=== PATIENT | female | born 1960 | race Caucasian/White ===

== ENCOUNTER 2023-03-26 13:59 | Inpatient (IN) ==
[2023-03-26] MEDS ORDERED: ASPIRIN CHEWABLE PO STA (14:25)
[2023-03-26 14:38] LABS: BASOPHILS # (AUTO) 0.1 K/uL (0-0.2); BASOPHILS % (AUTO) 0.9 % (0.0-3.0); EOSINOPHILS # (AUTO) 0.2 K/ul (0.0-0.7); EOSINOPHILS % (AUTO) 2.1 % (0.0-7.0); HEMATOCRIT 40.2 % (37.0-47.0); HEMOGLOBIN 13.4 g/dl (12.0-16.0); IMMATURE GRANULOCYTE % (AUTO) 0.4 % (0.0-5.0); LYMPHOCYTES # (AUTO) 1.5 K/uL (0.60-3.4); LYMPHOCYTES % (AUTO) 18.1 (10.0-50.0); MEAN CORPUSCULAR HEMOGLOBIN 33.3 pg (27.0-31.0); MEAN CORPUSCULAR HGB CONC 33.3 (31.8-35.4); MONOCYTES # (AUTO) 0.5 K/uL (0.4-2.0); MONOCYTES % (AUTO) 6.3 (0-10); NEUTROPHILS # (AUTO) 5.9 K/ul (2.0-6.9); NEUTROPHILS % (AUTO) 72.2 % (42.2-75.2); PLATELET COUNT 193 10^3/uL (140-440); RDW COEFFICIENT OF VARIATION 14.7 % (11.6-14.8); RED BLOOD COUNT 4.02 10^6/ul (4.20-5.40)
--- NOTE | 2023-03-26 14:45 | DI ---
EXAM: SINGLE VIEW CHEST. HISTORY: New onset A fib COMPARISON: None. FINDINGS: The cardiomediastinal silhouette appears enlarged. Pulmonary vascularity is within normal limits. Small left middle lung zone band-like opacities are seen. No evidence of pneumothorax or si zable pleural effusion is seen. Osseous structures are unremarkable. IMPRESSION: Left middle lung zone subsegmental atelectasis. Cardiomegaly.
[2023-03-26] MEDS ORDERED: ROCEPHIN 1 GM/50 ML D5W 1 GM/50 ML BAG IV ONE (14:47)
[2023-03-26 14:49] LABS: ALBUMIN 3.99 g/dL (3.5-5.0); ALKALINE PHOSPHATASE 97.9 U/L (53-141); ASPARTATE AMINO TRANSFERASE 35.7 U/L (14-36); BILIRUBIN,TOTAL 1.69 mg/dL (0.2-1.3); BLOOD UREA NITROGEN 24.6 mg/dL (7-17); CALCIUM 8.93 mg/dL (8.4-10.2); CARBON DIOXIDE 34.3 mmol/L (22-30.0); CHLORIDE 100.8 mmol/L (98-107); CREATINE KINASE 122.3 U/L (30-135); CREATININE 0.91 mg/dL (0.60-1.30); GLUCOSE 186.2 mg/dL (74-106); POTASSIUM 3.47 mmol/L (3.5-5.1); SODIUM 139.7 mmol/L (134.5-145); TOTAL PROTEIN 7.77 g/dL (6.3-8.2)
[2023-03-26 14:51] LABS: ABG O2 HGB 84.7 % (95-100); ABG PH 7.49 (7.35-7.45); BEecf 7.9 (-2.0-3.0); COHb 2.7 (0.5-1.5); HCO3 31.2 (21-28); MetHb 1.6 (0-1.5); TCO2 32.5 (19-24); sO2 88.8 % (94-98); tHb 13.5 g/dl (11.7-17.4)
[2023-03-26 15:01] LABS: TROPONIN I 0.049 ng/ml (0.0000-0.120)
--- NOTE | 2023-03-26 15:03 | ED.PDOC ---
General ED Provider: Dr. DAVIN CRANE DO Chief Complaint: Shortness of Air Stated Complaint: Patient arrives tachycardia 130 with elevated bp 190/123 Patient speaking in full sentences on room air. Patient denies hx of ACS, VTE, recent surgeries She is a non smoker No sick contacts She denies PMHX other than HTN Patient follow with [place] for healthcare they want her on HCTZ but she declines b ecause she does not like this medication Patient alert and oriented x4 GCS 15. Patient has LE edema mild LLE weeping, denies hx of heart failure Meets sirs criteria, suspect CHF exacerbation, EKG shows p waves-no afib Time Seen by Provider: 03/26/23 14:59 Information Source: Patient Primary Care Provider: [facility] [place] [facility] Triage Documentation Reviewed and Agree: Yes Does patient meet sepsis criteria?: No System Inflammatory Response Syndrome: Not Applicable Sepsis Protocol: For patient's 13 years and over: Temp is 96.8 and below OR 101 and greater Pulse >90 BPM Resp >20/minute Acutely Altered Mental Status Are patient's symptoms suggestive of a new infection, such as: -Pneumonia -Skin, Soft Tissue -Endocarditis -UTI -Bone, Joint Infection -Implantable Device -Acute Abdominal Infection -Wound Infection -Meningitis -Blood Stream Catheter Infection -Unknown Review of Systems Review Of Systems Constitutional: Denies Chills or Diaphoresis Eyes: Denies Blindness or Blurred vision Ears, Nose, Mouth, Throat: Denies Ear pain or Ear discharge Respiratory: Reports Cough, Orthopnea and Short of air; Denies Stridor Cardiac: Reports Edema and Palpitations; Denies Chest pain or Irregular heart rate GI: Denies Abdomen distended, Abdominal pain, Blood streaked bowels or Constipated : Denies Burning, Dysuria or Discharge Musculoskeletal: Reports Muscle pain; Denies Back pain, Joint pain or Muscle stiffness Skin: Denies Change in color or Rash Neurological: Denies Anxiety or Depressed Endocrine: Denies Excessive sweating or Flushing Hematologic/Lymphatic: Denies Anemia or Easy bleeding All Other Systems: Reviewed and Negative [facility] Medical History (Updated 03/26/23 @ 19:31 by ROHAN KIM RN) Family History (Updated 03/26/23 @ 19:31 by ROHAN KIM RN) FATHER AHMADI (nonalcoholic steatohepatitis) Social History (Updated 03/26/23 @ 19:31 by ROHAN FRITCH, RN) Smoking and tobacco status: Never smoker Surgical History (Updated 03/26/23 @ 19:31 by ROHAN KIM RN) Physical Exam Physical Exam Appearance: Reports Well-appearing and Well-nourished Ill-appearing: Mild Pain Distress: Mild Eyes: Reports MARVA and EOMI ENT: Reports Ears normal and Nose normal Neck: Supple Respiratory: Reports Airway patent and Crackles (bibasilar); Denies Wheezes or Retractions Cardiovascular: Reports Tachycardia; Denies Abnormal pulses or Murmur GI/: Reports Soft and Nontender; Denies Mass Musculoskeletal: Reports Normal strength, ROM intact and Edema (BL LE trace 1+ edema to mid [place] with excoriations and L [place] weeping, no cellulitis or bleeding) Skin: Reports Warm, Dry and Normal color Neurological: Reports Sensation intact and Motor intact Psychiatric: Reports Affect appropriate and Mood appropriate Critical Care Note Critical Care Note Total Critical Care Time (mins): 0 Course Course 03/26/23 14:33 03/26/23 14:33 Orders, Labs, Meds: Lab Review 03/26/23 03/26/23 03/26/23 14:33 14:45 16:40 WBC 8.10 RBC 4.02 L Hgb 13.4 Hct 40.2 MCV 100.0 H MCH 33.3 H MCHC 33.3 RDW Coeff of Tisha 14.7 Plt Count 193 Immature Gran % (Auto) 0.4 Neut % (Auto) 72.2 Lymph % (Auto) 18.1 [place] % (Auto) 6.3 Eos % (Auto) 2.1 Baso % (Auto) 0.9 Neut # (Auto) 5.9 Lymph # (Auto) 1.5 [place] # (Auto) 0.5 Eos # (Auto) 0.2 Baso # (Auto) 0.1 Immature Gran # (Auto) 0.0 Puncture Site Rbrach Base Excess 7.9 H O2 Saturation 88.8 L ABG pH 7.49 H ABG pCO2 41.0 ABG pO2 51.0 L* ABG HCO3 31.2 H ABG Total CO2 32.5 H Cameron Test Pos Hemoglobin 1.6 H Oxyhemoglobin 84.7 L Carboxyhemoglobin 2.7 H Total Hemoglobin 13.5 FiO2 % 21.0 Sodium 139.7 Potassium 3.47 L Chloride 100.8 Carbon Dioxide 34.3 H Anion Gap 8.07 BUN 24.6 H Creatinine 0.91 Estimated GFR (MDRD) 62.00 BUN/Creatinine Ratio 27.03 Glucose 186.2 H Lactic Acid 1.20 Calcium 8.93 Total Bilirubin 1.69 H AST 35.7 ALT 22.0 Alkaline Phosphatase 97.9 Total Creatine Kinase 122.3 CK-MB (CK-2) 2.830 H CK-MB (CK-2) % 2.3100 Troponin I 0.049 0.043 NT-Pro-B Natriuret Pep 35874 H Total Protein 7.77 Albumin 3.99 Globulin 3.78 Albumin/Globulin Ratio 1.05 D-Dimer 872.59 H SARS CoV-2 RNA Rapid ANETTE Negative Orders Category Date Time Status ADMIT OBSERVATION [PLACE PATIENT OBSERVATION] .TO ADMISSION 03/26/23 17:25 Active MEDSURG (MONITORED BED) ABG DRAW REQUEST Stat CARDIO 03/26/23 14:29 Completed EKG-(ED ONLY) Stat CARDIO 03/26/23 14:23 Completed NPO REMINDER: IMAGING ONCE CARE 03/26/23 15:32 Completed TELEMETRY MONITORING TELE CARE 03/26/23 17:26 Completed ED APPLY O2 .ONCE EMERGENCY 03/26/23 14:23 Active ED IV/MEDIPORT/POWERPORT .ONCE EMERGENCY 03/26/23 14:23 Active ABG COOX Stat LAB 03/26/23 14:45 Completed BLOOD CULTURE Stat LAB 03/26/23 15:12 Received CBC W/ AUTO DIFF Stat LAB 03/26/23 14:33 Completed COMPREHENSIVE METABOLIC PANEL Stat LAB 03/26/23 14:33 Completed COVID [SARS COV-2 RNA RAPID ANETTE] Stat LAB 03/26/23 14:33 Completed CREATINE KINASE Stat LAB 03/26/23 14:33 Completed D-DIMER Stat LAB 03/26/23 14:33 Completed LACTIC ACID Stat LAB 03/26/23 14:33 Completed NT-PROBNP(ED) Stat LAB 03/26/23 14:33 Completed TROPONIN I Stat LAB 03/26/23 14:33 Completed TROPONIN I Stat LAB 03/26/23 16:40 Completed 0.9 % Sodium Chloride [Saline Flush] MEDS 03/26/23 14:23 Active 1 syr IVF PRN PRN Aspirin [Aspirin Chewable] MEDS 03/26/23 14:25 Discontinued 324 mg PO ONCE STA Ceftriaxone/D5w 1 gm Premix [Rocephin 1 gm/50 ml D5w] MEDS 03/26/23 14:47 Discontinued 1 gm in 50 ml IV ONCE Diltiazem HCl [Cardizem Inj] MEDS 03/26/23 16:54 Discontinued 10 mg IVP ONCE ONE Enoxaparin Sodium [Lovenox] MEDS 03/26/23 21:00 Discontinued 40 mg SUBCUT BID Furosemide [Lasix] MEDS 03/26/23 15:08 Discontinued 80 mg IVP ONCE ONE Magnesium Oxide [Mag-Ox] MEDS 03/26/23 15:42 Discontinued 400 mg PO ONCE ONE Ondansetron HCl/Pf [Zofran 4 mg/2 ml] MEDS 03/26/23 17:27 Active 4 mg IVP 3-4XD PRN Potassium Chloride [K-Dur] MEDS 03/26/23 15:42 Discontinued 40 meq PO ONCE ONE CHEST, 1V AP ONLY Stat RADS 03/26/23 14:[address] CHEST PE PROTOCOL Stat RADS 03/26/23 15:31 Completed Medications Generic Name Dose Route Start Last Admin Trade Name Freq PRN Reason Stop Dose Admin Acetaminophen 650 mg 03/26/23 17:35 Acetaminophen 325 Mg Tablet PO Q4H PRN Mild Pain Enoxaparin Sodium 40 mg 03/27/23 09:00 Enoxaparin Sodium 40 Mg/0.4 Ml Syr SUBCUT DAILY [facility] Furosemide 40 mg 03/27/23 06:30 Furosemide Inj 40 Mg/4 Ml Vial IVP BIDAC [facility] Losartan Potassium 100 mg 03/27/23 09:00 Losartan Potassium 100 Mg Tablet PO DAILY [facility] Ondansetron HCl 4 mg 03/26/23 17:27 Ondansetron Hcl/Pf 4 Mg/2 Ml Sdv IVP 3-4XD PRN Nausea / Vomiting Sodium Chloride 1 syr 03/26/23 14:23 0.9% Sodium Chloride 10 Ml Disp.Syrin IVF PRN PRN To flush IV Sodium Chloride 1 syr 03/26/23 21:00 0.9% Sodium Chloride 10 Ml Disp.Syrin IVF Q8HR [facility] Discontinued Medications Generic Name Dose Route Start Last Admin Trade Name Freq PRN Reason Stop Dose Admin Aspirin 324 mg 03/26/23 14:25 03/26/23 14:44 Aspirin 81 Mg Tab.Chew PO 03/26/23 14:26 324 mg ONCE STA Administration Diltiazem HCl 10 mg 03/26/23 16:54 03/26/23 18:43 Diltiazem Hcl Inj 25 Mg/5 Ml Vial IVP 03/26/23 16:55 Not Given ONCE ONE Enoxaparin Sodium 40 mg 03/26/23 21:00 Enoxaparin Sodium 40 Mg/0.4 Ml Syr SUBCUT BID MARLENE Furosemide 80 mg 03/26/23 15:08 03/26/23 15:14 Furosemide Inj 100 Mg/10 Ml Vial IVP 03/26/23 15:09 80 mg ONCE ONE Administration CEFTRIAXONE/D5W 1 GM PREMIX 1 gm in 50 mls @ 75 mls/hr 03/26/23 14:47 03/26/23 15:02 Rocephin 1 Gm/50 Ml D5w IV 03/26/23 15:26 75 mls/hr ONCE ONE Administration Magnesium Oxide 400 mg 03/26/23 15:42 03/26/23 16:33 Magnesium Oxide 400 Mg Tablet PO 03/26/23 15:43 400 mg ONCE ONE Administration Metoprolol Tartrate 5 mg 03/26/23 18:42 03/26/23 19:07 Metoprolol Tartrate 5 Mg/5 Ml Vial IVP 03/26/23 18:43 5 mg ONCE STA Administration Potassium Chloride 40 meq 03/26/23 15:42 03/26/23 16:33 Potassium Chloride 20 Meq Tab PO 03/26/23 15:43 40 meq ONCE ONE Administration Vital Signs: Temp Pulse Resp BP Pulse Ox 03/26/23 14:04 98.9 F 125 H 24 H 196/123 H 87 L Patient met sirs criteria-blood cultures and abx given to avoid missing sepsis, fluids held with concern for fluid overload BNP 13,000-new onset CHF-patient denies hx of anything but HTN D dimer can not be age adjusted CT PE ordered (640 FEU cut off for her) Lasix dosed, aspirin given WIll admit if appropriate when work up completes ABG shows mild hypoxia. MDM: Patient is a 63 yo F here for lower extremity edema Patient afebrile and vitally stable, initially tachycardia and HTN-improved during stay Hx from patient chart review by me Initially patient claimed hx of only HTN, then later told other team members she [facility] Patient is a poor historian, she is alert and oriented x4 GCS 15 Consults to Hospitalist Team 3+ labs and 2 3 images interpreted by me WDX: CHF exacerbation Vs new onset, pleural effusions, lower extremity edema, acute hypoxia acute condition high complexity DDX: I considered STEMI, PE, pneumothorax but these are less likely Diuresis in the ED Patient and I discussed all findings and incidental findings Patient admitted stable to observation SDOH: Patient insured with PCP and family support, her aunt is at bedside Patient not happy with BP cuff, agrees to wear it after I went to the floor. 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
[2023-03-26 15:04] LABS: CREATINE KINASE MB 2.83 ng/ml (0.0-2.38)
[2023-03-26] MEDS ORDERED: LASIX IVP ONE (15:08)
[2023-03-26 15:33] LABS: SARS COV-2 RNA RAPID NAAT NEGATIVE (NEGATIVE)
[2023-03-26] MEDS ORDERED: MAG-OX PO ONE (15:42)
[2023-03-26] MEDS ORDERED: K-DUR PO ONE (15:42)
--- NOTE | 2023-03-26 16:53 | CT ---
EXAM: CTA CHEST WITH IV CONTRAST HISTORY: Tachycardia, new onset congestive heart failure TECHNIQUE: Multi-slice transaxial helical PE protocol. Multiplanar MIP and 3D volume rendered image s are provided. COMPARISON: Chest radiograph from same day. FINDINGS: The heart is enlarged. Mild calcified plaques are seen within the thoracic aorta. Enlarged subcarin al lymph node is seen measuring 2.6 cm in short axis on axial image 46. The main pulmonary artery is dilated measuring 3.8 cm transverse. This can be seen with pulmonary arterial hypertension. Examin ation for PE is limited secondary to motion artifacts. No evidence of pulmonary embolism is seen. No axillary adenopathy is seen. Edematous changes of the subcutaneous tissues are seen. Mild fat de nsity thickening of the adrenal glands is seen compatible with hyperplasia or adenoma. IV contrast r efluxes into the IVC and hepatic veins. Gallbladder has been removed. Mild thoracic spondylosis is seen. Ground-glass opacities are seen throughout the lungs. Small right and minimal left layering pleural effusions are seen. A small consolidation in the left upper lobe is seen. Additional band-like opac ities in the left upper lobe are seen compatible with subsegmental atelectasis. No evidence of pneum othorax is seen. :::::::::::::::::::::::::::::: IMPRESSION: 1. No evidence of PE. 2. Findings compatible with congestive heart failure with small right pleural effusion, minimal left pleural effusion, and diffuse bilateral pulmonary edema. 3. Superimposed left upper lobe atelectasis and/or pneumonia. 4. Cardiomegaly. 5. Nonspecific mediastinal adenopathy. 6. Anasarca. 7. Other chronic/incidental findings as above. :::::::::::::::::::::::::::::: All CT scans are performed using dose optimization techniques as appropriate to the performed exam an d include at least one of the following: Automated exposure control, adjustment of the mA and/or kV according t o size, and the use of iterative reconstruction technique.
[2023-03-26] MEDS ORDERED: CARDIZEM INJ IVP ONE (16:54)
[2023-03-26] MEDS ORDERED: ZOFRAN 4 MG/2 ML IVP PRN (17:27)
[2023-03-26] MEDS ORDERED: TYLENOL PO PRN (17:35)
[2023-03-26 18:28] VITALS: BMI 33.4
[2023-03-26] MEDS ORDERED: LOPRESSOR IVP STA (18:42)
[2023-03-26] MEDS ORDERED: LOVENOX SUBCUT SCH (21:00)
[2023-03-27] MEDS: LOPRESSOR IVP PRN ×2 (00:09→06:21)
[2023-03-27] MEDS ORDERED: HYDRALAZINE HCL IVP ONE (03:03)
[2023-03-27 04:54] LABS: BASOPHILS # (AUTO) 0.1 K/uL (0-0.2); BASOPHILS % (AUTO) 0.9 % (0.0-3.0); EOSINOPHILS # (AUTO) 0.2 K/ul (0.0-0.7); EOSINOPHILS % (AUTO) 3.1 % (0.0-7.0); HEMATOCRIT 38.4 % (37.0-47.0); HEMOGLOBIN 12.7 g/dl (12.0-16.0); IMMATURE GRANULOCYTE % (AUTO) 0.5 % (0.0-5.0); LYMPHOCYTES # (AUTO) 1.3 K/uL (0.60-3.4); MEAN CORPUSCULAR HEMOGLOBIN 33.3 pg (27.0-31.0); MEAN CORPUSCULAR HGB CONC 33.1 (31.8-35.4); MEAN CORPUSCULAR VOLUME 100.8 fl (81.0-99.0); MONOCYTES # (AUTO) 0.4 K/uL (0.4-2.0); MONOCYTES % (AUTO) 5.8 (0-10); NEUTROPHILS # (AUTO) 5.5 K/ul (2.0-6.9); NEUTROPHILS % (AUTO) 72.7 % (42.2-75.2); PLATELET COUNT 198 10^3/uL (140-440); RDW COEFFICIENT OF VARIATION 14.9 % (11.6-14.8); RED BLOOD COUNT 3.81 10^6/ul (4.20-5.40); WHITE BLOOD COUNT 7.54 K/ul (4.6-10.2)
[2023-03-27 05:06] LABS: ALANINE AMINOTRANSFERASE 21.5 U/L (0-35); ALBUMIN 3.8 g/dL (3.5-5.0); ALKALINE PHOSPHATASE 80.4 U/L (53-141); ASPARTATE AMINO TRANSFERASE 33.8 U/L (14-36); BILIRUBIN,TOTAL 1.23 mg/dL (0.2-1.3); BLOOD UREA NITROGEN 24.4 mg/dL (7-17); CALCIUM 8.76 mg/dL (8.4-10.2); CARBON DIOXIDE 33.5 mmol/L (22-30.0); CHLORIDE 103.7 mmol/L (98-107); CREATININE 0.85 mg/dL (0.60-1.30); GLUCOSE 138.7 mg/dL (74-106); MAGNESIUM 1.79 mg/dL (1.6-2.3); POTASSIUM 3.63 mmol/L (3.5-5.1); TOTAL PROTEIN 7.45 g/dL (6.3-8.2)
[2023-03-27 06:16] LABS: AMPHETAMINE SCREEN,URINE NEGATIVE (NEGATIVE); BARBITURATE SCREEN,URINE NEGATIVE (NEGATIVE); BENZODIAZEPINES SCREEN,URINE NEGATIVE (NEGATIVE); CANNABINOID SCREEN,URINE NEGATIVE (NEGATIVE); COCAIN SCREEN,URINE NEGATIVE (NEGATIVE); METHADONE URINE SCREEN NEGATIVE (NEGATIVE); METHAMPHETAMINES SCREEN,URINE NEGATIVE (NEGATIVE); OPIATE SCREEN,URINE NEGATIVE (NEGATIVE); OXYCODONE URINE SCREEN NEGATIVE (NEGATIVE); PHENCYCLIDINE SCREEN,URINE NEGATIVE (NEGATIVE); PROPOXYPHENE URINE SCREEN NEGATIVE (NEGATIVE); TRICYCLIC ANTIDEPRESSANTS URIN NEGATIVE (NEGATIVE)
[2023-03-27] MEDS ORDERED: LASIX IVP SCH (06:30)
[2023-03-27] MEDS: LOPRESSOR PO SCH ×2 (08:46→09:49)
[2023-03-27] MEDS ORDERED: COZAAR PO SCH (09:00)
[2023-03-27] MEDS ORDERED: LOVENOX SUBCUT SCH (09:00)
--- NOTE | 2023-03-27 09:06 | PCM ---
Date of Service Date Seen by Provider: 03/27/23 Time Seen by Provider: 08:30 Admit Day/Time Admission Date: 03/26/23 Admission Time: 17:25 Reason for Admission Chief Complaint: CHF Hospital Provider Hospital Provider: DAYAMI MOON PA-C, [facility] Primary Care Physician Primary Care Physician: GUS MRATIN History of Present Illness History of Present Illness: Patient is a 63 year old female with pmhx of hypertension and skin cancer who presented to ER with cc of sob and edema. She states she's been having lower ext edema and sob since early January. She denies any events around that time. She s tates it is progressively getting worse. She is having difficulty sleeping at night and often has to prop up to breathe. Ambulating has been difficult as well. Denies history of LA or CHF. She states she had a heart cath done in Jan 18 at [facility] but is unsure why it was performed. Denies any stent placement at that time. She currently takes losartan for HTN, states she is complaint. Has been prescribed HCTZ but does not want to take it. In the ER she was noted to have a bnp >[id number], trop negative x2. CXR showed cardiomegaly. CTA chest showed no PE but did have signs of heart failure. She was given lasix 80 mg IV, potassium 40 mg PO, magnesium PO, and ceftriaxone since she initially met sepsis criteria. She was hypoxic upon arrival at 87% and improved with 2L of oxygen. She was also noted to have hypertensive urgency. Upon evaluation today, patient is reluctant to wear her O2. She desaturated to 84% with conversation. She has diuresed about 950 cc so far. She denies feeling "air hungry" like yesterday. Case Discussed With Case Discussed With: Patient's case was discussed with the ER Physicians, Dr. Galan. [facility] Medical History Surgical History Family History FATHER AHMADI (nonalcoholic steatohepatitis) Social History Smoking and tobacco status: Never smoker Alcohol intake: never Substance use type: does not use service: Yes Allergies Allergies Allergy/AdvReac Type Severity Reaction Status Date / Time nkda AdvReac Uncoded 03/26/23 14:33 Current Medications Home Medications losartan 100 mg tablet 100 mg PO DAILY 03/26/23 [History Confirmed 03/26/23 Last Taken 03/26/23] Home Acetaminophen (Acetaminophen 325 Mg Tablet) 650 mg PO Q4H PRN PRN Reason: Mild Pain Aspirin (Aspirin 81 Mg Tab.Chew) 81 mg PO DAILYWM [facility] Last Admin: 03/27/23 13:00 Dose: 81 mg Empagliflozin (Empagliflozin 10 Mg Tablet) 10 mg PO DAILY [facility] Last Admin: 03/27/23 13:01 Dose: 10 mg Enoxaparin Sodium (Enoxaparin Sodium 40 Mg/0.4 Ml Syr) 40 mg SUBCUT DAILY [facility] Last Admin: 03/27/23 08:47 Dose: Not Given Furosemide (Furosemide Inj 40 Mg/4 Ml Vial) 40 mg IVP BIDAC [facility] Last Admin: 03/27/23 05:30 Dose: 40 mg Hydralazine HCl (Hydralazine Hcl 20 Mg/Ml Sdv) 10 mg IVP Q6H PRN PRN Reason: Hypertension Last Admin: 03/27/23 12:29 Dose: 10 mg Lorazepam (Lorazepam 0.5 Mg Tablet) 0.5 mg PO TID PRN PRN Reason: Anxiety Losartan Potassium (Losartan Potassium 100 Mg Tablet) 100 mg PO DAILY [facility] Last Admin: 03/27/23 08:46 Dose: 100 mg Metoprolol Tartrate (Metoprolol Tartrate 25 Mg Tablet) 25 mg PO BID [facility] Last Admin: 03/27/23 09:49 Dose: Not Given Ondansetron HCl (Ondansetron Hcl/Pf 4 Mg/2 Ml Sdv) 4 mg IVP 3-4XD PRN PRN Reason: Nausea / Vomiting Sodium Chloride (0.9% Sodium Chloride 10 Ml Disp.Syrin) 1 syr IVF PRN PRN PRN Reason: To flush IV Sodium Chloride (0.9% Sodium Chloride 10 Ml Disp.Syrin) 1 syr IVF Q8HR [facility] Last Admin: 03/27/23 12:30 Dose: 1 syr Spironolactone (Spironolactone 25 Mg Tablet) 25 mg PO DAILY [facility] Last Admin: 03/27/23 13:00 Dose: 25 mg Discontinued Medications Aspirin (Aspirin 81 Mg Tab.Chew) 324 mg PO ONCE STA Stop: 03/26/23 14:26 Last Admin: 03/26/23 14:44 Dose: 324 mg Diltiazem HCl (Diltiazem Hcl Inj 25 Mg/5 Ml Vial) 10 mg IVP ONCE ONE Stop: 03/26/23 16:55 Last Admin: 03/26/23 18:43 Dose: Not Given Enoxaparin Sodium (Enoxaparin Sodium 40 Mg/0.4 Ml Syr) 40 mg SUBCUT BID [facility] Furosemide (Furosemide Inj 100 Mg/10 Ml Vial) 80 mg IVP ONCE ONE Stop: 03/26/23 15:09 Last Admin: 03/26/23 15:14 Dose: 80 mg Hydralazine HCl (Hydralazine Hcl 20 Mg/Ml Sdv) 10 mg IVP ONCE ONE Stop: 03/27/23 03:04 Last Admin: 03/27/23 03:13 Dose: 10 mg CEFTRIAXONE/D5W 1 GM PREMIX (Rocephin 1 Gm/50 Ml D5w) 1 gm in 50 mls @ 75 mls/hr IV ONCE ONE Stop: 03/26/23 15:26 Last Admin: 03/26/23 15:02 Dose: 75 mls/hr Magnesium Oxide (Magnesium Oxide 400 Mg Tablet) 400 mg PO ONCE ONE Stop: 03/26/23 15:43 Last Admin: 03/26/23 16:33 Dose: 400 mg Magnesium Sulfate (Magnesium Sulfate Vial 1 Gm/2 Ml Vial) 1 gm IVP ONCE ONE Stop: 03/27/23 09:48 Last Admin: 03/27/23 10:40 Dose: 1 gm Metoprolol Tartrate (Metoprolol Tartrate 5 Mg/5 Ml Vial) 5 mg IVP ONCE STA Stop: 03/26/23 18:43 Last Admin: 03/26/23 19:07 Dose: 5 mg Metoprolol Tartrate (Metoprolol Tartrate 5 Mg/5 Ml Vial) 5 mg IVP PRN PRN PRN Reason: Hypertension Last Admin: 03/27/23 06:21 Dose: 5 mg Potassium Chloride (Potassium Chloride 20 Meq Tab) 40 meq PO ONCE ONE Stop: 03/26/23 15:43 Last Admin: 03/26/23 16:33 Dose: 40 meq Review of Systems Constitutional: Denies Fever, Fatigue or Recent Weight Loss Head: Reports Normocephalic and Atraumatic Eyes: Denies Blurred vision, Double-vision or Vision Changes Ears: Denies Pain or Drainage Nose: Denies Bleeding or Congestion Mouth: Denies Sores Throat: Denies Sore Throat or Difficulty Swallowing Cardiovascular: Reports High Blood Pressure and Edema; Denies Chest pain, Chest Pressure, Irregular Heartbeat or Palpitations Respiratory: Reports Shortness of air and Other (Difficulty breathing while lying flat ); Denies Cough Gastrointestinal: Denies Nausea, Vomiting, Constipation or Abdominal pain Genitourinary: Denies Dysuria, Incontinent Bowel or Incontinent Bladder Musculoskeletal: Denies Muscle Pain Dermatologic: Denies Rashes Endocrine: Denies Excessive thirst or Weight changes Hematology: Denies Easy bleeding or Anemia Neurological: Denies Headache, Dizziness or Syncope Psychiatric: Reports Anxiety; Denies Depression, Hopelessness or Suicidal Physical examination Most Recent Vital Signs: Most Recent Vital Signs Temperature 97.4 F L 03/26/23 22:00 Temperature Source Oral 03/26/23 22:00 Temperature Source Infrared 03/26/23 14:04 Pulse Rate 111 H 03/27/23 06:00 Respiratory Rate 26 H 03/27/23 06:00 Blood Pressure 164/120 H 03/27/23 06:00 Blood Pressure Mean 134 03/27/23 06:00 Blood Pressure Right Arm 174/126 03/26/23 18:01 Blood Pressure Location Right Arm 03/27/23 06:00 Blood Pressure Position Standing 03/27/23 06:00 O2 Sat by Pulse Oximetry 94 L 03/26/23 22:00 Oxygen Delivery Method Room Air 03/27/23 06:00 Oxygen Flow Rate 2 03/27/23 03:42 Height 5 ft 7 in 03/27/23 08:00 Weight 209 lb 6 oz 03/27/23 08:00 Telemetry Type Remote Telemetry 03/27/23 07:00 Telemetry Monitoring Continues 03/27/23 07:00 Irregular Telemetry Rate (Approximate) 90-100 BPM 03/27/23 01:00 Telemetry Heart Rate 85 03/27/23 07:00 Telemetry SPO2 96 03/26/23 19:00 EKG SC Interval 0.13 03/27/23 07:00 EKG QRS Interval 0.03 L 03/27/23 07:00 EKG QT Interval 0.39 03/27/23 01:00 Telemetry Strip Reading SR 03/27/23 07:00 Appearance: Positive Well-appearing, Well-nourished, No Apparent Distress and Alert and Oriented x3 Skin: Positive [place], Warm and Good Color HEENT: Positive Normocephalic, Atraumatic and Oral Mucous Moist Neck: Positive Supple and Midline Trachea Chest/Lungs: Positive Symmetrical With Equal Breath Sounds, Clear to Auscultation Bilaterally and Good Air Movement all 4 Lung Louise Heart: Positive Tachycardia; Negative Murmur GI/: Positive Soft, Nontender and Bowel Sounds Normal Musculoskeletal: Positive Normal Gait and Station Extremities: Positive Edema (2+ pitting edema deepthi to mid-[place] ri[place]. Left lower ext with small anterior sore noted. No significant cellulitis noted. ) Neurological: Positive Alert, Oriented and Muscle Strength 5/5 in Upper and Lower Extremities Bilaterally Psychiatric: Positive Oriented x4, Appropriate Mood and Appropriate Affect Labs This Visit Labs This Visit: Labs This Visit 03/26/23 03/26/23 03/26/23 14:33 14:45 16:40 WBC 8.10 RBC 4.02 L Hgb 13.4 Hct 40.2 MCV 100.0 H MCH 33.3 H MCHC 33.3 RDW Coeff of Tisha 14.7 Plt Count 193 Immature Gran % (Auto) 0.4 Neut % (Auto) 72.2 Lymph % (Auto) 18.1 Harmon % (Auto) 6.3 Eos % (Auto) 2.1 Baso % (Auto) 0.9 Neut # (Auto) 5.9 Lymph # (Auto) 1.5 Harmon # (Auto) 0.5 Eos # (Auto) 0.2 Baso # (Auto) 0.1 Immature Gran # (Auto) 0.0 Puncture Site Rbrach Base Excess 7.9 H O2 Saturation 88.8 L ABG pH 7.49 H ABG pCO2 41.0 ABG pO2 51.0 L* ABG HCO3 31.2 H ABG Total CO2 32.5 H Cameron Test Pos Hemoglobin 1.6 H Oxyhemoglobin 84.7 L Carboxyhemoglobin 2.7 H Total Hemoglobin 13.5 FiO2 % 21.0 Sodium 139.7 Potassium 3.47 L Chloride 100.8 Carbon Dioxide 34.3 H Anion Gap 8.07 BUN 24.6 H Creatinine 0.91 Estimated GFR (MDRD) 62.00 BUN/Creatinine Ratio 27.03 Glucose 186.2 H Hemoglobin A1c Lactic Acid 1.20 Calcium 8.93 Magnesium Total Bilirubin 1.69 H AST 35.7 ALT 22.0 Alkaline Phosphatase 97.9 Total Creatine Kinase 122.3 CK-MB (CK-2) 2.830 H CK-MB (CK-2) % 2.3100 Troponin I 0.049 0.043 NT-Pro-B Natriuret Pep 05144 H Total Protein 7.77 Albumin 3.99 Globulin 3.78 Albumin/Globulin Ratio 1.05 Procalcitonin TSH D-Dimer 872.59 H Urine Opiates Screen Ur Oxycodone Screen Urine Methadone Screen Ur Propoxyphene Screen Ur Barbiturates Screen U Tricyclic Antidepress Ur Phencyclidine Scrn Ur Amphetamine Screen U Methamphetamines Scrn U Benzodiazepines Scrn Urine Cocaine Screen U Cannabinoids Screen SARS CoV-2 RNA Rapid ANETTE Negative 03/26/23 03/27/23 03/27/23 19:40 04:49 05:30 WBC 7.54 RBC 3.81 L Hgb 12.7 Hct 38.4 MCV 100.8 H MCH 33.3 H MCHC 33.1 RDW Coeff of Tisha 14.9 H Plt Count 198 Immature Gran % (Auto) 0.5 Neut % (Auto) 72.7 Lymph % (Auto) 17.0 Harmon % (Auto) 5.8 Eos % (Auto) 3.1 Baso % (Auto) 0.9 Neut # (Auto) 5.5 Lymph # (Auto) 1.3 Harmon # (Auto) 0.4 Eos # (Auto) 0.2 Baso # (Auto) 0.1 Immature Gran # (Auto) 0.0 Puncture Site Base Excess O2 Saturation ABG pH ABG pCO2 ABG pO2 ABG HCO3 ABG Total CO2 Cameron Test Hemoglobin Oxyhemoglobin Carboxyhemoglobin Total Hemoglobin FiO2 % Sodium 140.0 Potassium 3.63 Chloride 103.7 Carbon Dioxide 33.5 H Anion Gap 6.43 BUN 24.4 H Creatinine 0.85 Estimated GFR (MDRD) 67.00 BUN/Creatinine Ratio 28.70 Glucose 138.7 H Hemoglobin A1c 6.6 H Lactic Acid Calcium 8.76 Magnesium 1.79 Total Bilirubin 1.23 AST 33.8 ALT 21.5 Alkaline Phosphatase 80.4 Total Creatine Kinase CK-MB (CK-2) CK-MB (CK-2) % Troponin I NT-Pro-B Natriuret Pep Total Protein 7.45 Albumin 3.80 Globulin 3.65 Albumin/Globulin Ratio 1.04 Procalcitonin < 0.05 TSH 5.270 H D-Dimer Urine Opiates Screen Negative Ur Oxycodone Screen Negative Urine Methadone Screen Negative Ur Propoxyphene Screen Negative Ur Barbiturates Screen Negative U Tricyclic Antidepress Negative Ur Phencyclidine Scrn Negative Ur Amphetamine Screen Negative U Methamphetamines Scrn Negative U Benzodiazepines Scrn Negative Urine Cocaine Screen Negative U Cannabinoids Screen Negative SARS CoV-2 RNA Rapid ANETTE Imaging Imagining: EXAM: SINGLE VIEW CHEST. HISTORY: New onset A fib COMPARISON: None. FINDINGS: The cardiomediastinal silhouette appears enlarged. Pulmonary vascularity is within normal limits. Small left middle lung zone band-like opacities are seen. No evidence of pneumothorax or sizable pleural effusion is seen. Osseous structures are unremarkable. IMPRESSION: Left middle lung zone subsegmental atelectasis. Cardiomegaly. EXAM: CTA CHEST WITH IV CONTRAST HISTORY: Tachycardia, new onset congestive heart failure TECHNIQUE: Multi-slice transaxial helical PE protocol. Multiplanar MIP and 3D volume rendered images are provided. COMPARISON: Chest radiograph from same day. FINDINGS: The heart is enlarged. Mild calcified plaques are seen within the thoracic aorta. Enlarged subcarinal lymph node is seen measuring 2.6 cm in short axis on axial image 46. The main pulmonary artery is dilated measuring 3.8 cm transverse. This can be seen with pulmonary arterial hypertension. Examination for PE is limited secondary to motion artifacts. No evidence of pulmonary embolism is seen. No axillary adenopathy is seen. Edematous changes of the subcutaneous tissues are seen. Mild fat density thickening of the adrenal glands is seen compatible with hyperplasia or adenoma. IV contrast refluxes into the IVC and hepatic veins. Gallbladder has been removed. Mild thoracic spondylosis is seen. Ground-glass opacities are seen throughout the lungs. Small right and minimal left layering pleural effusions are seen. A small consolidation in the left upper lobe is seen. Additional band-like opacities in the left upper lobe are seen compatible with subsegmental atelectasis. No evidence of pneumothorax is seen. IMPRESSION: 1. No evidence of PE. 2. Findings compatible with congestive heart failure with small right pleural effusion, minimal left pleural effusion, and diffuse bilateral pulmonary edema. 3. Superimposed left upper lobe atelectasis and/or pneumonia. 4. Cardiomegaly. 5. Nonspecific mediastinal adenopathy. 6. Anasarca. 7. Other chronic/incidental findings as above. EKG Interpretation EKG Interpretation: Sinus tach, no stemi reviewed by myself and Dr. Lexie Iglesias. Review Statement Review Statement: I have independently reviewed and interpreted the labs/EKGs/imaging that were ordered by the ER provider. I have reviewed all outside records that are available currently in our EMR including imaging/notes/labs from previous visits. Plan Plan: 1. Acute hypoxic respiratory failure in setting of new onset heart failure - Requiring 2L O2, wean when able. Does not wear home O2. Start Lasix 40 IV bid, RT consult, echo, strict I&Os, 1800 cc fluid restriction. Low sodium diet. 2. New onset heart failure, unknown type - Improving. Diuresed about 950 overnight. Patient reports heart cath jan 18, requesting records. Will get echo today, will do GDMT based on results. Consider cardiology consult depending on results. Plan as above. Monitor potassium daily. 3. Hypertensive urgency - Improving. Required IV metoprolol and IV hydralazine through the night. Continue home losartan. Add metoprolol 25 mg PO bid. Will continue to monitor and adjust as needed. Will stop prn metoprolol IV and add prn hydralazine IV. 4. Hypertension, chronic, unstable - Patient has been noncompliant with home medication (HCTZ). Continue losartan. Start metoprolol as above. 5. Hypomagnesemia - Mag <2, will give mag 1 gm rider. 6. Anxiety - Patient very anxious about her hospital stay. Will order ativan 0.5 mg PO prn q8hrs, will escalate if needed. DVT Prophylaxis: Lovenox 40 qd. Time Spent: Greater than 80 minutes spent with patient, 50% of the time spent with this patient was devoted to counseling and coordination of care. Advanced Care Planning: Patient wishes to be a DNR. 5 minutes spent discussing advance care planning. Admit to: Will make inpatient today Discussed Plan of Care with Dr. Lexie Iglesias and nursing staff, case management, PT/OT. Reviewed [facility] records from 01/07/22. Pt had been seen to [place] for chest pain and left AMA. She presented to ER for chest pain and elevated BP. She had LHC on 01/08/22 with no significant epicardial CAD. Hypertensive emergency likely etiology for her significant CP and EKG per records. Echo showed LVEF of 56-60%. Diastolic function consistent with grade II pseudonormalization. Medications Medication Orders: Medications Ordered Category Date Time Status 0.9 % Sodium Chloride [Saline Flush] MEDS 03/26/23 14:23 Active 1 syr IVF PRN PRN 0.9 % Sodium Chloride [Saline Flush] MEDS 03/26/23 21:00 Active 1 syr IVF Q8HR Acetaminophen [Tylenol] MEDS 03/26/23 17:35 Active 650 mg PO Q4H PRN Enoxaparin Sodium [Lovenox] MEDS 03/27/23 09:00 Active 40 mg SUBCUT DAILY Furosemide [Lasix] MEDS 03/27/23 06:30 Active 40 mg IVP BIDAC Losartan Potassium [Cozaar] MEDS 03/27/23 09:00 Active 100 mg PO DAILY Metoprolol Tartrate [Lopressor] MEDS 03/27/23 08:05 Active 25 mg PO BID Metoprolol Tartrate [Lopressor] MEDS 03/26/23 21:53 Active 5 mg IVP PRN PRN Ondansetron HCl/Pf [Zofran 4 mg/2 ml] MEDS 03/26/23 17:27 Active 4 mg IVP 3-4XD PRN Smoking and tobacco status: Never smoker
[2023-03-27] MEDS ORDERED: HYDRALAZINE HCL IVP PRN (09:45)
[2023-03-27] MEDS ORDERED: MAGNESIUM SULFATE 1 GM/2 ML VIAL IVP ONE (09:47)
[2023-03-27 10:11] VITALS: TEMP 96.9
[2023-03-27] MEDS ORDERED: ATIVAN PO PRN (11:37)
--- NOTE | 2023-03-27 12:28 | ECHO2D ---
Date of Exam: 03/27/2023 Ordering Physician: SAHRA Room #: 109 Reason for Echo: CHF, HYPERTENSIVE EMERGENCY Auscultation: S1, S2, S3 M-Mode Normal Adult Results LV Dimensions Normal Adult Results AoV Opening excursions >1.6 >1.6 LVEDD-base- 3.5-5.8 5.4 Ao root dimensions 2.0-3.7 3.9 LVESD-base- 3.1-4.6 L. Atrium dimensions 1.9-3.8 5.8 Post. Wall thickness 0.8-1.1 1.2 IV septum (thickness) 0.7-1.2 1.4 Post. Wall excursion 0.72-1.3 0.9 Septal motion 0.1 Systolic motion R. Ventricular cavity 1.5-2.0 4.0 LVEF 60% 20-25% Paradoxical septal wall motion MAYBE 2-D : ENLARGED LEFT ATRIAL AND RIGHT VENTRICLE CAVITIES, AKINETIC SEPTAL WALL--HYPOKINETIC INFERIOR POST WALL, VALVES NORMAL, NO EFFUSION, NO THROMBUS COLOR FLOW: MILD TO MODERATE MITRAL REGURGITATION, TRICUSPID REGURGITATION AND MILD AORTIC REGURGITATION M-MODE: MV: NORMAL AV: NORMAL TV: NORMAL PV: CHAMBER SIZE: ENLARGED RIGHT ATRIAL, RIGHT VENTRICLE AND LEFT ATRIAL SIZE WALL MOTION: HYPOKINETIC LEFT VENTRICLE (HYPO TO AKINETIC SEPTAL WALL) PERICARDIUM: NORMAL INTERPRETATION: 1. LEFT VENTRICLE HYPERTROPHY WITH MARKEDLY ENLARGED LEFT ATRIAL CAVITY 2. ENLARGED RIGHT ATRIAL AND RIGHT VENTRICLE CAVITIES 3. AKINETIC SEPTAL WALL/ HYPOKINETIC INFERIOR POST WALL-- EJECTION FRACTION 20- 25% 4. MILD TO MODERATE MITRAL REGURGITATION AND TRICUSPID REGURGITATION MTDD
[2023-03-27] MEDS ORDERED: ASPIRIN CHEWABLE PO SCH (13:00)
[2023-03-27] MEDS: ALDACTONE PO SCH ×2 (13:00→13:42)
[2023-03-27] MEDS: JARDIANCE PO SCH ×2 (13:01→13:42)
[2023-03-27 13:31] VITALS: BP 152/103
--- NOTE | 2023-03-27 13:43 | PCM.PROG ---
IP AMA Note Discharge Disposition Discharge Disposition: Patient's statement as to reason for leaving (if applicable): See hospital course below. Admission Date Admission Date: 03/26/23 Discharge Date Discharge Date: 03/27/23 Admission Diagnosis Admission Diagnosis: CHF Discharge Diagnosis Discharge Diagnosis: Acute hypoxic respiratory failure Acute systolic heart failure Hypertensive urgency Hypertension, chronic Hospital Provider Hospital Provider: DAYAMI MOON PA-C, [facility] Primary Care Physician Primary Care Physician: GUS MARTIN Summary of History and Physical Summary of History and Physical: Patient is a 63 year old female with pmhx of hypertension and skin cancer who presented to ER with cc of sob and edema. She states she's been having lower ext edema and sob since early January. She denies any events around that time. She states it is progressively getting worse. She is having difficulty sleeping at night and often has to prop up to breathe. Ambulating has been difficult as well. Denies history of HI or CHF. She states she had a heart cath done in Jan 18 at [facility] but is unsure why it was performed. Denies any stent placement at that time. She currently takes losartan for HTN, states she is complaint. Has been prescribed HCTZ but does not want to take it. In the ER she was noted to have a bnp >[id number], trop negative x2. CXR showed cardiomegaly. CTA chest showed no PE but did have signs of heart failure. She was given lasix 80 mg IV, potassium 40 mg PO, magnesium PO, and ceftriaxone since she initially met sepsis criteria. She was hypoxic upon arrival at 87% and improved with 2L of oxygen. She was also noted to have hypertensive urgency. Upon evaluation today, patient is reluctant to wear her O2. She desaturated to 84% with conversation. She has diuresed about 950 cc so far. She denies feeling "air hungry" like yesterday. Hospital Course Subjective: Patient was treated with lasix overnight and diuresed well. She was also started on metoprolol for BP and HR control. She was still requiring oxygen although reluctant to wear it. She desaturated into 80s with conversation. Echo performed showing an EF of 20-25% with hypokinesis. This is a dramatic change from echo from [facility] 01/18 showing normal EF. Appropriate therapy was initiated for systolic heart failure including asa, aldactone, and jardiance in addition to metoprolol and lasix and her home losartan. Discussed in detail with patient her the new diagnosis and condition of her heart. She had been expressing to staff wanting to leave [place] to go home and get new clothing. Staff offered her other clothing or to launder her own clothing for her. She refused. I discussed in detail with patient the need to stay to initiate treatment as planned and to get her oxygen saturations improved. She declines. She is oriented and has mental capacity to make decisions herself. She states no one can get clothing for her. She is feeling very anxious and would like to leave. I again reiterated that ativan prn was ordered and I was happy to order additional anxiety medications to help her through this hospital stay. She refused. She had concerns regarding the cost of jardiance, it was campo checked for $11 which she states was doable but then refused the medication. She understands that she is requiring oxygen, and without it her saturations decline into the 80s. She states "it's been that way for a while now." We offered to set up home O2 for her prior to her leaving and she refused. She understands that she is at risk for upon leaving [place] and she can return at anytime to the ER. Patient signed AMA forms prior to leaving. Appearance: Pleasant, Well-appearing and Well-nourished HEENT: MMM and Supple CVS: Other (RRR, heart rate improved ) Abdomen: Soft and Non-Tender Respiratory: No Wheezing (Dyspnea with ambulation ) Extremities: No Edema (+2+ pitting edema to mid [place] bilaterally. ) Vital Signs: Most Recent Vital Signs Temperature 96.9 F L 03/27/23 10:00 Temperature Source Temporal Artery Scan 03/27/23 10:00 Temperature Source Infrared 03/26/23 14:04 Pulse Rate 98 03/27/23 10:00 Respiratory Rate 17 03/27/23 10:00 Blood Pressure 152/103 H 03/27/23 13:00 Blood Pressure Mean 129 03/27/23 10:00 Blood Pressure Right Arm 174/126 03/26/23 18:01 Blood Pressure Location Right Arm 03/27/23 10:00 Blood Pressure Position Sitting 03/27/23 10:00 O2 Sat by Pulse Oximetry 98 03/27/23 10:00 Oxygen Delivery Method Nasal Cannula 03/27/23 10:00 Oxygen Flow Rate 2 03/27/23 10:00 Height 5 ft 7 in 03/27/23 08:00 Weight 209 lb 6 oz 03/27/23 08:00 Telemetry Type Remote Telemetry 03/27/23 13:00 Telemetry Monitoring Continues 03/27/23 13:00 Irregular Telemetry Rate (Approximate) 100-110 BPM 03/27/23 13:00 Telemetry Heart Rate 111 H 03/27/23 13:00 Telemetry SPO2 97 03/27/23 13:00 EKG KS Interval 0.08 L 03/27/23 13:00 EKG QRS Interval 0.10 03/27/23 13:00 EKG QT Interval 0.39 03/27/23 01:00 Telemetry Strip Reading Tachycardia with PVCs 03/27/23 13:00 Imaging: EXAM: SINGLE VIEW CHEST. HISTORY: New onset A fib COMPARISON: None. FINDINGS: The cardiomediastinal silhouette appears enlarged. Pulmonary vascularity is within normal limits. Small left middle lung zone band-like opacities are seen. No evidence of pneumothorax or sizable pleural effusion is seen. Osseous structures are unremarkable. IMPRESSION: Left middle lung zone subsegmental atelectasis. Cardiomegaly. EXAM: CTA CHEST WITH IV CONTRAST HISTORY: Tachycardia, new onset congestive heart failure TECHNIQUE: Multi-slice transaxial helical PE protocol. Multiplanar MIP and 3D volume rendered images are provided. COMPARISON: Chest radiograph from same day. FINDINGS: The heart is enlarged. Mild calcified plaques are seen within the thoracic aorta. Enlarged subcarinal lymph node is seen measuring 2.6 cm in short axis on axial image 46. The main pulmonary artery is dilated measuring 3.8 cm transverse. This can be seen with pulmonary arterial hypertension. Examination for PE is limited secondary to motion artifacts. No evidence of pulmonary embolism is seen. No axillary adenopathy is seen. Edematous changes of the subcutaneous tissues are seen. Mild fat density thickening of the adrenal glands is seen compatible with hyperplasia or adenoma. IV contrast refluxes into the IVC and hepatic veins. Gallbladder has been removed. Mild thoracic spondylosis is seen. Ground-glass opacities are seen throughout the lungs. Small right and minimal left layering pleural effusions are seen. A small consolidation in the left upper lobe is seen. Additional band-like opacities in the left upper lobe are seen compatible with subsegmental atelectasis. No evidence of pneumothorax is seen. IMPRESSION: 1. No evidence of PE. 2. Findings compatible with congestive heart failure with small right pleural effusion, minimal left pleural effusion, and diffuse bilateral pulmonary edema. 3. Superimposed left upper lobe atelectasis and/or pneumonia. 4. Cardiomegaly. 5. Nonspecific mediastinal adenopathy. 6. Anasarca. 7. Other chronic/incidental findings as above. Lab Results Last 24 Hours: 03/27/23 03/27/23 03/26/23 05:30 04:49 19:40 WBC 7.54 RBC 3.81 L Hgb 12.7 Hct 38.4 MCV 100.8 H MCH 33.3 H MCHC 33.1 RDW Coeff of Tisha 14.9 H Plt Count 198 Immature Gran % (Auto) 0.5 Neut % (Auto) 72.7 Lymph % (Auto) 17.0 [place] % (Auto) 5.8 Eos % (Auto) 3.1 Baso % (Auto) 0.9 Neut # (Auto) 5.5 Lymph # (Auto) 1.3 [place] # (Auto) 0.4 Eos # (Auto) 0.2 Baso # (Auto) 0.1 Immature Gran # (Auto) 0.0 Puncture Site Base Excess O2 Saturation ABG pH ABG pCO2 ABG pO2 ABG HCO3 ABG Total CO2 Cameron Test Hemoglobin Oxyhemoglobin Carboxyhemoglobin Total Hemoglobin FiO2 % Sodium 140.0 Potassium 3.63 Chloride 103.7 Carbon Dioxide 33.5 H Anion Gap 6.43 BUN 24.4 H Creatinine 0.85 Estimated GFR (MDRD) 67.00 BUN/Creatinine Ratio 28.70 Glucose 138.7 H Hemoglobin A1c 6.6 H Lactic Acid Calcium 8.76 Magnesium 1.79 Total Bilirubin 1.23 AST 33.8 ALT 21.5 Alkaline Phosphatase 80.4 Total Creatine Kinase CK-MB (CK-2) CK-MB (CK-2) % Troponin I NT-Pro-B Natriuret Pep Total Protein 7.45 Albumin 3.80 Globulin 3.65 Albumin/Globulin Ratio 1.04 Procalcitonin < 0.05 TSH 5.270 H D-Dimer Urine Opiates Screen Negative Ur Oxycodone Screen Negative Urine Methadone Screen Negative Ur Propoxyphene Screen Negative Ur Barbiturates Screen Negative U Tricyclic Antidepress Negative Ur Phencyclidine Scrn Negative Ur Amphetamine Screen Negative U Methamphetamines Scrn Negative U Benzodiazepines Scrn Negative Urine Cocaine Screen Negative U Cannabinoids Screen Negative SARS CoV-2 RNA Rapid ANETTE 03/26/23 03/26/23 03/26/23 16:40 14:45 14:33 WBC 8.10 RBC 4.02 L Hgb 13.4 Hct 40.2 MCV 100.0 H MCH 33.3 H MCHC 33.3 RDW Coeff of Tisha 14.7 Plt Count 193 Immature Gran % (Auto) 0.4 Neut % (Auto) 72.2 Lymph % (Auto) 18.1 [place] % (Auto) 6.3 Eos % (Auto) 2.1 Baso % (Auto) 0.9 Neut # (Auto) 5.9 Lymph # (Auto) 1.5 [place] # (Auto) 0.5 Eos # (Auto) 0.2 Baso # (Auto) 0.1 Immature Gran # (Auto) 0.0 Puncture Site Rbrach Base Excess 7.9 H O2 Saturation 88.8 L ABG pH 7.49 H ABG pCO2 41.0 ABG pO2 51.0 L* ABG HCO3 31.2 H ABG Total CO2 32.5 H Cameron Test Pos Hemoglobin 1.6 H Oxyhemoglobin 84.7 L Carboxyhemoglobin 2.7 H Total Hemoglobin 13.5 FiO2 % 21.0 Sodium 139.7 Potassium 3.47 L Chloride 100.8 Carbon Dioxide 34.3 H Anion Gap 8.07 BUN 24.6 H Creatinine 0.91 Estimated GFR (MDRD) 62.00 BUN/Creatinine Ratio 27.03 Glucose 186.2 H Hemoglobin A1c Lactic Acid 1.20 Calcium 8.93 Magnesium Total Bilirubin 1.69 H AST 35.7 ALT 22.0 Alkaline Phosphatase 97.9 Total Creatine Kinase 122.3 CK-MB (CK-2) 2.830 H CK-MB (CK-2) % 2.3100 Troponin I 0.043 0.049 NT-Pro-B Natriuret Pep 60943 H Total Protein 7.77 Albumin 3.99 Globulin 3.78 Albumin/Globulin Ratio 1.05 Procalcitonin TSH D-Dimer 872.59 H Urine Opiates Screen Ur Oxycodone Screen Urine Methadone Screen Ur Propoxyphene Screen Ur Barbiturates Screen U Tricyclic Antidepress Ur Phencyclidine Scrn Ur Amphetamine Screen U Methamphetamines Scrn U Benzodiazepines Scrn Urine Cocaine Screen U Cannabinoids Screen SARS CoV-2 RNA Rapid ANETTE Negative Discharge Instructions Discharge Planning: Patient left AMA Discharge Planning > 40 minutes Medications Given This Visit: Medications Generic Name Dose Route Start Last Admin Trade Name Freq PRN Reason Stop Dose Admin Acetaminophen 650 mg 03/26/23 17:35 Acetaminophen 325 Mg Tablet PO Q4H PRN Mild Pain Aspirin 81 mg 03/27/23 13:00 03/27/23 13:00 Aspirin 81 Mg Tab.Chew PO 81 mg DAILYWM MARLENE Administration Empagliflozin 10 mg 03/27/23 13:00 03/27/23 13:01 Empagliflozin 10 Mg Tablet PO 10 mg DAILY MARLENE Administration Enoxaparin Sodium 40 mg 03/27/23 09:00 03/27/23 08:47 Enoxaparin Sodium 40 Mg/0.4 Ml Syr SUBCUT Not Given DAILY MARLENE Furosemide 40 mg 03/27/23 06:30 03/27/23 05:30 Furosemide Inj 40 Mg/4 Ml Vial IVP 40 mg BIDAC MARLENE Administration Hydralazine HCl 10 mg 03/27/23 09:45 03/27/23 12:29 Hydralazine Hcl 20 Mg/Ml Sdv IVP 10 mg Q6H PRN Administration Hypertension Lorazepam 0.5 mg 03/27/23 11:37 Lorazepam 0.5 Mg Tablet PO TID PRN Anxiety Losartan Potassium 100 mg 03/27/23 09:00 03/27/23 08:46 Losartan Potassium 100 Mg Tablet PO 100 mg DAILY MARLENE Administration Metoprolol Tartrate 25 mg 03/27/23 08:05 03/27/23 09:49 Metoprolol Tartrate 25 Mg Tablet PO Not Given BID MARLENE Ondansetron HCl 4 mg 03/26/23 17:27 Ondansetron Hcl/Pf 4 Mg/2 Ml Sdv IVP 3-4XD PRN Nausea / Vomiting Sodium Chloride 1 syr 03/26/23 14:23 0.9% Sodium Chloride 10 Ml Disp.Syrin IVF PRN PRN To flush IV Sodium Chloride 1 syr 03/26/23 21:00 03/27/23 12:30 0.9% Sodium Chloride 10 Ml Disp.Syrin IVF 1 syr Q8HR MARLENE Administration Spironolactone 25 mg 03/27/23 13:00 Spironolactone 25 Mg Tablet PO DAILY MARLENE Medications Given This Visit: Medications at Discharge (Home Meds & RX) losartan 100 mg tablet 100 mg PO DAILY 03/26/23
== END 2023-03-27 14:01 | disposition left against medical advice (07) | DRG 291 ==
LOC: MEDSURG A 13:59 → ED 13:59 → MEDSURG A 17:58
PROVIDERS: ADMIT Emergency Medicine; ATTEND Physician Assistant
DX: Z79.899 Other long term (current) drug therapy; Z85.828 Personal history of other malignant neoplasm of skin; Z20.822 Contact with and (suspected) exposure to COVID-19; Z79.01 Long term (current) use of anticoagulants; Z51.81 Encounter for therapeutic drug level monitoring; F41.9 Anxiety disorder, unspecified; I11.0 Hypertensive heart disease with heart failure; J90 Pleural effusion, not elsewhere classified; R22.43 Localized swelling, mass and lump, lower limb, bilateral; R00.0 Tachycardia, unspecified; I50.9 Heart failure, unspecified; R06.02 Shortness of breath; J96.01 Acute respiratory failure with hypoxia; I16.0 Hypertensive urgency; E83.42 Hypomagnesemia